=== PATIENT | male | born 2000 | race Caucasian/White ===

== ENCOUNTER → 2024-06-13 | Outpatient (CLI) | payer OTHER ==
[~2024-06-13] MED LIST: PROHANCE 279.3MG/ML 15ML VIAL As Ordered ONE
== END ==
LOC: M RAD 15:48
PROVIDERS: ATTEND Audiologist
DX: H90.41 Sensorineural hearing loss, unilateral, right ear, with unrestricted hearing on the contralateral side (principal); J34.1 Cyst and mucocele of nose and nasal sinus; J32.2 Chronic ethmoidal sinusitis
CPT/HCPCS: 70553; A9576

== ENCOUNTER → 2025-07-28 | Outpatient (CLI) | payer OTHER | LOC: M EKG 13:31 | DX: R00.2 Palpitations (principal) ==

== ENCOUNTER → 2025-09-17 | Outpatient (CLI) | payer OTHER | LOC: M CARPUL 14:01 | PROVIDERS: ATTEND Physician Assistant | DX: R00.2 Palpitations (principal); R55 Syncope and collapse ==